=== PATIENT | male | born 1990 | race Two or more races ===

== ENCOUNTER 2025-01-19 09:58 | Emergency (ER) | payer OTHER ==
[~2025-01-19] VITALS: Ht 180.3 cm; Wt 93.0 kg
[2025-01-19 10:05] VITALS: BP 130/84; TEMP 98.1
[2025-01-19] MEDS ORDERED: AMOX-430 PO (10:36)
[2025-01-19] MEDS ORDERED: POLY10DR OP (10:36)
[2025-01-19] MEDS ORDERED: AMOX/CLAVULANATE 875 MG TABLET ONE (10:36)
[2025-01-19] MEDS: AMOX/CLAVULANATE 875 MG TABLET PO ONE (10:40)
[2025-01-19 10:45] VITALS: O2SAT 100
== END 2025-01-19 10:46 | disposition home or self-care (01) ==
LOC: ER 10:18
DX: H57.11 Ocular pain, right eye (principal)